=== PATIENT | male | born 1990 | race Caucasian/White ===

== ENCOUNTER 2017-01-17 18:17 | Emergency (ER) | payer SELFPAY ==
[~2017-01-17] VITALS: Ht 175.3 cm; Wt 80.0 kg
[2017-01-17 18:18] VITALS: BP 119/82
[2017-01-17] MEDS ORDERED: LIDOCAINE 1%, 20ML ONE (18:52)
[2017-01-17] MEDS ORDERED: LIDOCAINE 1%, 20ML SQ ONE (19:00)
[2017-01-17] MEDS ORDERED: HYDROcodone/APAP 5/325 TABLET ONE (19:07)
[2017-01-17] MEDS ORDERED: ONDANSETRON ODT 4 MG ONE (19:08)
[2017-01-17] MEDS ORDERED: DIPH,PERTUSS(ACELL),TET VAC/PF 0.5 ML IM-VACC ONE ×2 (19:15→19:30)
[2017-01-17] MEDS ORDERED: BACITRACIN ZINC OINT 500U/GM, 0.9 GM ONE (19:23)
[2017-01-17] MEDS ORDERED: HYDROcodone/APAP 5/325 TABLET PO ONE (19:30)
[2017-01-17] MEDS ORDERED: ONDANSETRON ODT 4 MG PO ONE (19:30)
== END 2017-01-17 19:47 | disposition home or self-care (01) ==
LOC: ED 19:27
DX: S61.011A Laceration without foreign body of right thumb without damage to nail, initial encounter (principal); Z90.49 Acquired absence of other specified parts of digestive tract; W26.0XXA Contact with knife, initial encounter; Y93.89 Activity, other specified; Y92.89 Other specified places as the place of occurrence of the external cause; Y99.8 Other external cause status
CPT/HCPCS: 12042; 90471; 90715; 99284; Q0162